=== PATIENT | male | born 1975 | race Caucasian/White ===

== ENCOUNTER 2021-08-13 16:02 | Emergency (ER) | payer OTHER ==
[~2021-08-13] VITALS: Ht 175.3 cm; Wt 70.3 kg
[2021-08-13 16:10] VITALS: BP 126/85
--- NOTE | 2021-08-13 18:30 | NUR ---
PATIENT LEFT WITHOUT BEING SEEN BY DR. TRUONG. NO FURTHER CARE PROVIDED FOR PATIENT.
--- NOTE | 2021-08-13 18:58 | NUR ---
Honorio griggs in ED - 08/13/21 at 1858 by PATRICA PATIENT LEFT WITHOUT BEING SEEN BY DR. TRUONG. NO FURTHER CARE PROVIDED FOR PATIENT.
== END 2021-08-13 18:30 | disposition left against medical advice (07) ==
LOC: MED 16:02
DX: R05.9 Cough, unspecified (principal); M79.10 Myalgia, unspecified site; R53.83 Other fatigue; Z53.21 Procedure and treatment not carried out due to patient leaving prior to being seen by health care provider